=== PATIENT | female | born 1995 | race Caucasian/White ===

== ENCOUNTER 2020-10-01 13:39 | Observation (INO) | payer MEDICAID ==
[~2020-10-01] VITALS: Ht 157.5 cm; Wt 90.7 kg
== END 2020-10-01 15:50 | disposition home or self-care (01) ==
LOC: 8EST NSY 13:39 → 8 EST LDRP 14:29
PROVIDERS: ADMIT Obstetrics & Gynecology; ATTEND Obstetrics & Gynecology
DX: O42.913 Preterm premature rupture of membranes, unspecified as to length of time between rupture and onset of labor, third trimester (principal); Z3A.35 35 weeks gestation of pregnancy
CPT/HCPCS: 59025; 76805; 76818; G0378; 99281

== ENCOUNTER 2020-10-14 11:42 | Observation (INO) | payer MEDICAID ==
[~2020-10-14] VITALS: Ht 160 cm; Wt 86.2 kg
[2020-10-14] MEDS ORDERED: LACTATED RINGERS 1,000 ML IV SCH (12:30)
[2020-10-14 12:56] LABS: CLARITY URINE CLEAR (CLEAR); COLOR URINE YELLOW (YELLOW); KETONES URINE NEGATIVE (NEGATIVE); LEUKOCYTE ESTERASE URINE TRACE (NEGATIVE); NITRITE URINE NEGATIVE (NEGATIVE); OCCULT BLOOD URINE NEGATIVE (NEGATIVE); PROTEIN URINE NEGATIVE (NEGATIVE); SPECIFIC GRAVITY URINE 1.016 (1.005-1.030); UROBILINOGEN URINE 0.2 E.U./dL (0.2-1.0)
== END 2020-10-14 13:51 | disposition home or self-care (01) ==
LOC: 8 EST LDRP 11:42
PROVIDERS: ADMIT Obstetrics & Gynecology; ATTEND Obstetrics & Gynecology
DX: O62.9 Abnormality of forces of labor, unspecified (principal); Z3A.37 37 weeks gestation of pregnancy
CPT/HCPCS: 81003; G0378; 96360; 99281